=== PATIENT | female | born 1960 | race Caucasian/White ===

== ENCOUNTER → 2017-04-10 | Outpatient (CLI) | payer MEDICAID ==
--- NOTE | 2017-04-08 14:46 | US ---
EXAM DESCRIPTION: Diagnostic Mammo,Bilateral (accession [id number]), Breast,Right (accession [id number]) CLINICAL HISTORY: 56 years, Female, palpable abnormality in the upper aspect of the left breast beneath the clavicle COMPARISON: None TECHNIQUE: CC and MLO digital mammograms with computer aided detection. FINDINGS: There are scattered fibroglandular densities. There is no dominant mass nor any suspicious microcalcifications. Benign microcalcifications are present. Ultrasound of the right breast is performed in the area of palpable concern and shows no discrete ultrasound definable abnormality. IMPRESSION: BI-RADS 2: BENIGN FOLLOW-UP: Routine mammography screening. Electronically signed by: Timmy Mai MD 04/07/2017 2:26 PM CDT
--- NOTE | 2017-04-08 14:46 | US ---
EXAM DESCRIPTION: Diagnostic Mammo,Bilateral (accession [id number]), Breast,Right (accession [id number]) CLINICAL HISTORY: 56 years, Female, palpable abnormality in the upper aspect of the left breast beneath the clavicle COMPARISON: None TECHNIQUE: CC and MLO digital mammograms with computer aided detection. FINDINGS: There are scattered fibroglandular densities. There is no dominant mass nor any suspicious microcalcifications. Benign microcalcifications are present. Ultrasound of the right breast is performed in the area of palpable concern and shows no discrete ultrasound definable abnormality. IMPRESSION: BI-RADS 2: BENIGN FOLLOW-UP: Routine mammography screening. Electronically signed by: Timmy Mai MD 04/07/2017 2:26 PM CDT
--- NOTE | 2017-04-09 13:24 | MAM ---
EXAM DESCRIPTION: Diagnostic Mammo,Bilateral (accession [id number]), Breast,Right (accession [id number]) CLINICAL HISTORY: 56 years, Female, palpable abnormality in the upper aspect of the left breast beneath the clavicle COMPARISON: None TECHNIQUE: CC and MLO digital mammograms with computer aided detection. FINDINGS: There are scattered fibroglandular densities. There is no dominant mass nor any suspicious microcalcifications. Benign microcalcifications are present. Ultrasound of the right breast is performed in the area of palpable concern and shows no discrete ultrasound definable abnormality. IMPRESSION: BI-RADS 2: BENIGN FOLLOW-UP: Routine mammography screening. Electronically signed by: Timmy Mai MD 04/07/2017 2:26 PM CDT
== END | disposition home or self-care (01) ==
LOC: MAMMO 16:52
PROVIDERS: ATTEND Family Medicine
DX: R92.8 Other abnormal and inconclusive findings on diagnostic imaging of breast (principal)

== ENCOUNTER → 2019-08-03 | Outpatient (CLI) | payer OTHER ==
--- NOTE | 2019-08-06 16:33 | MAM ---
EXAM DESCRIPTION: 3D Screening BILATERAL : Digital Mammography. CLINICAL HISTORY: 59 years Female ANNUAL SCREENING . No complaints. No personal history of breast cancer. Remote family history of ovarian cancer. Childbirth. Postmenopausal 5 years. Currently on HRT. Lifetime risk of developing breast cancer (Tyrer-Cuzick model)(%): 8.9. COMPARISON: 2-D digital screening bilateral mammography 04/07/2017.. TECHNIQUE: Bilateral CC and MLO projection full-field images, digital tomosynthesis mammographic technique. Bilateral digital 2-D full-field MLO images. CAD not available for tomosynthesis or 2-D images. FINDINGS: The breast parenchymal density pattern is: Scattered areas of fibroglandular density. No skin thickening or nipple retraction. No new focal, stellate mass or density, focal asymmetry , and no suspicious microcalcifications bilaterally. Stable mammograms compared to prior study. Taking into account, differences in mammographic technique. IMPRESSION: BI-RADS CATEGORY: 1 - NEGATIVE FOLLOW UP: Routine digital bilateral screening, one year interval from July 2019. Written communication explaining the findings and follow-up, will be mailed to the patient and referring health care provider. According to the [employer], yearly mammograms are recommended starting at age 40 and continuing as long as a woman is in good health. Any breast change noted on a breast self-exam should be reported promptly to the patient's healthcare provider. Breast MRI is recommended for women with an approximately 20-25% or greater lifetime risk of breast cancer, including women with a strong family history of breast or ovarian cancer and women who have been treated for Hodgkin's disease. A negative mammographic report should not delay tissue diagnosis in patients with significant clinical history or physical findings. Extremely dense breast tissue limits the sensitivity of digital mammography. Electronically signed by: Allen Little MD 08/06/2019 4:31 PM CDT
== END ==
LOC: MAMMO 10:00
PROVIDERS: ATTEND Family Medicine
DX: Z12.31 Encounter for screening mammogram for malignant neoplasm of breast (principal)